=== PATIENT | female | born 1990 | race Caucasian/White ===

== ENCOUNTER 2018-01-13 09:43 | Observation (INO) ==
[2018-01-13 12:13] LABS: Bilirubin,Urine Negative (Negative); Blood,Urine Negative (Negative); Clarity,Urine Clear (Clear); Color,Urine Yellow (Yellow); Glucose,Urine (UA) Normal (Normal); Ketones,Urine Negative (Negative); Leukocyte Esterase,Urine Negative (Negative); Nitrite,Urine Negative (Negative); PH,Urine 6.5 pH Units (5.0-8.0); Protein,Urine Negative (Neg-Trace); Urobilinogen,Urine Normal (Normal)
--- NOTE | 2018-01-13 12:38 | OB/GYN Progress Note ---
Date of Encounter: 01/13/18 Time of Encounter: 12:34 - Assessment and Plan (1) 29 weeks gestation of Current Visit: Yes Status: Acute (2) Diarrhea Current Visit: Yes Status: Acute Pt denies any diarrhea since early this am. She is tolerating liquids well. Qualifiers: Diarrhea type: unspecified type Qualified Code(s): R19.7 - Diarrhea, unspecified (3) Back pain complicating in third trimester Current Visit: Yes Status: Acute No contractions. Pt reports pain is now gone. Discharge home with precautions. Subjective - Subjective Interval history: 27 year-old presenting at 29w5d with c/o diarrhea and lower back pain that started around 3 am and spontaneously resolved upon arrival to triage. Pt reports feeling well with no complaints now. She reports the pain was in her lower middle back. She admits to intercourse last evening. The diarrhea has been intermttent for the last 5 days. Good FM. No leaking, bleeding, or contractions. Antepartum ROS: movement normal, no loss of fluid, no vaginal bleeding, no contractions Objective - Vital Signs Vital Signs: Intake and Output 01/12/18 01/13/18 01/13/18 23:59 07:59 15:59 Other: Weight 84.2 kg Patient Weight 01/13/18 23:59 Weight 84.2 kg - Exam FHR: category 1 FHR comments: FHT reassuring for GA Abdomen: Present: soft, gravid. Absent: tenderness Uterus: Absent: tenderness Comments: no contractions on toco
[2018-01-13 12:45] LABS: Amphetamine Screen,Urine Negative ng/mL (Cutoff=1000); Barbiturate Screen,Urine Negative ng/mL (Cutoff=200); Benzodiazepines Screen,Urine Negative ng/mL (Cutoff=200); Cannabinoid Screen,Urine Negative ng/mL (Cutoff = 50); Cocaine Screen,Urine Negative ng/mL (Cutoff= 300); Opiate Screen,Urine Negative ng/mL (Cutoff=300); Phencyclidine Screen,Urine Negative ng/mL (Cutoff=25)
== END 2018-01-13 12:37 | disposition home or self-care (01) ==
LOC: 1NENULAB
PROVIDERS: ADMIT Registered Nurse; ATTEND Registered Nurse

== ENCOUNTER 2018-02-15 13:28 | Observation (INO) ==
--- NOTE | 2018-02-15 14:48 | OB/GYN Progress Note ---
Date of Encounter: 02/15/18 Time of Encounter: 14:46 - Assessment and Plan (1) 34 weeks gestation of Current Visit: Yes Status: Acute Continue care as scheduled labor precautions given Discharge home (2) NST (non-stress test) reactive on surveillance Current Visit: Yes Status: Acute Subjective - Subjective Principal diagnosis: nausea and vomiting during Interval history: Jameson is a 28-year-old female who is 34 weeks 3 days gestation who presents with a three-day history of nausea with vomiting. She reports that she called her blood sugar logs into the office and was advised to go to the emergency room for rule out DKA. Her A1c was 4.9% in the ER and her blood sugar was 96. She reports they gave her 1 L of fluids that she now feels better. She presents to us for monitoring via NST. She endorses good movement and denies contractions, leakage of fluid, vaginal bleeding. Antepartum ROS: new complaints, movement normal, no loss of fluid, no vaginal bleeding, no contractions Objective - Vital Signs Vital Signs: Intake and Output 02/14/18 02/15/18 02/15/18 23:59 07:59 15:59 Other: Weight 85.5 kg Patient Weight 02/15/18 23:59 Weight 85.5 kg - Exam FHR: category 1 FHR comments: Baseline 140 Moderate variability Accelerations present No decelerations heart rate category I No toco activity Auscultation: bilateral: normal Abdomen: Present: normal appearance, soft, gravid Uterus: Present: normal, firm
== END 2018-02-15 14:30 | disposition home or self-care (01) ==
LOC: 1NENULAB
PROVIDERS: ADMIT Obstetrics & Gynecology; ATTEND Obstetrics & Gynecology

== ENCOUNTER 2018-03-20 06:00 | Inpatient (IN) ==
[2018-03-20] MEDS ORDERED: Naloxone 0.4 MG/ML INJ IVP PRN ×2 (06:31→12:53)
[2018-03-20] MEDS ORDERED: Ondansetron 4 MG/2 ML VIAL IVP PRN ×2 (06:31→12:53)
[2018-03-20] MEDS ORDERED: Famotidine 20 MG/2 ML VIAL IVP PRN (06:31)
[2018-03-20] MEDS ORDERED: *HR* Nalbuphine 10 MG/ML AMPUL IVP PRN (06:31)
[2018-03-20] MEDS ORDERED: Metoclopramide 10 MG/2 ML VIAL IVP PRN (06:31)
[2018-03-20] MEDS ORDERED: Ringers Solution, Lactated 1,000 ML IVC SCH (06:45)
[2018-03-20 06:53] LABS: Basophils % 0.3 %; Eosinophils # 0.1 K/mcL (0.0-0.6); Eosinophils % 0.9 %; Hematocrit 34.8 % (35.3-44.9); Hemoglobin 12.1 g/dL (11.5-15.4); Immature Granulocytes % 0.3 % (0-4); Lymphocytes # 1.7 K/mcL (0.6-4.6); Mean Corpuscular HGB Conc 34.8 g/dL (31.6-35.5); Mean Corpuscular Hemoglobin 32.5 pg (28.0-33.3); Mean Corpuscular Volume 93.5 fL (83.0-100.0); Mean Platelet Volume 10.8 fL (9.4-12.4); Monocytes # 0.6 K/mcL (0.0-1.3); Monocytes % 6.1 %; Neutrophils # 6.9 K/mcL (1.6-8.9); Platelet Count 237 K/mcL (140-400); Red Blood Count 3.72 M/mcL (3.82-4.97); Segmented Neutrophils % 74.4 %
[2018-03-20] MEDS ORDERED: Penicillin G Potassium 5,000,000 UNIT in 0.9 % Sodium Chloride Mini Bag 100 ML IVPB ONE (06:57)
[2018-03-20 08:07] LABS: Amphetamine Screen,Urine Negative ng/mL (Cutoff=1000); Barbiturate Screen,Urine Negative ng/mL (Cutoff=200); Benzodiazepines Screen,Urine Negative ng/mL (Cutoff=200); Cannabinoid Screen,Urine Negative ng/mL (Cutoff = 50); Cocaine Screen,Urine Negative ng/mL (Cutoff= 300); Opiate Screen,Urine Negative ng/mL (Cutoff=300); Phencyclidine Screen,Urine Negative ng/mL (Cutoff=25)
[2018-03-20] MEDS ORDERED: miSOPROStol 25 MCG TABLET PO PRN (08:38)
[2018-03-20] MEDS: Penicillin G Potassium 2,500,000 UNIT in 0.9 % Sodium Chloride 100 ML IVPB SCH ×2 (12:37→16:53)
--- NOTE | 2018-03-20 12:47 | Anesthesia Evaluation PreOp ---
Date of Encounter: 03/20/18 Time of Encounter: 12:15 - Past History Planned Operation: CLARE Cardiac History: Other (hx of sinus tachycardia) Pulmonary History: Denies Any Significant HX BODY HANGER History: Other (hx sciatica with mild numbness in hips and thighs. Occasional visits to chiropractor for relief. Pt states xray history showing hip misalignment, with no lumbar spine concerns. Will proceed with epidural.) Other Medical History: GERD, Other (Pt history of severe depression and suicidal ideation and auditory hallucinations with an admit to psychiatric care 2 years ago after a plan developed to stab herself with a knife. Hx of pt on prozac and zoloft. Gestational diabetes with insulin control.) Anesthesia History: No Prior Anesthetic Complications, Past Anesthesia ( Tonsillectomy) : Yes Alcohol Use: none Drug use: none Medications and Allergies [id number]/Iron Fumarate/FA/Dss [ 19 Tablet] 1 tab PO DAILY 01/13/18 [ History] 3 Allergy/AdvReac Type Severity Reaction Status Date / Time No Known Allergies Allergy Verified 02/15/18 10:17 - Meds/Allergy Pre-op Review Medications Reviewed: Yes Allergies Reviewed: Yes Beta Blockers on Current Med List: No Anesthesia Results - Labs 03/20/18 06:30 03/20/18 06:30 Anesthesia Exam BP 112/76 P 83 T 98.1 R 16 Height: 5'3" Weight: 86.5kg NPO (# of Hours): currently on clears Pain Scale: 4 Pain Scale Used: Numeric (1 - 10) - HEENT Pupil (Motor): Pupils equal Mallampati: II Teeth: Normal Oral Opening: Greater than 3 - BODY HANGER LOC: Oriented BODY HANGER Motor: Normal RUE, Normal LUE, Normal RLE, Normal LLE, Normal Face BODY HANGER Sensory: Normal: RUE, LUE, RLE, LLE, Face - Cardiac Rhythm: Regular Murmur: None JVD: No Carotid Bruit: No - Pulmonary Breath Sounds: bilateral Clear Respiratory Effort: Symmetrical Anesthesia Assess/Plan ASA Score: 3 Modified Andrés Scale for Level of Consciousness: Cooperative, oriented, and tranquil Anesthetic Plan: Regional Autologous Blood: Yes Monitoring Plan: Standard Monitors Recovery Plan: Other
[2018-03-20] MEDS ORDERED: *HR* FentaNYL (PF) 100 MCG/2 ML VIAL EP ONE (12:53)
[2018-03-20] MEDS ORDERED: EPHEDrine 50 MG/ML VIAL IVP PRN (12:53)
[2018-03-20] MEDS ORDERED: *HR* Ropivacaine/PF 0.2% 20 ML VIAL EP ONE (12:53)
[2018-03-20] MEDS ORDERED: Bupivacaine-MPF 0.25% 10 ML VIAL EP ONE (12:53)
[2018-03-20] MEDS ORDERED: Epidural Premix (fent/bupiv) 110 ML EP SCH (13:00)
--- NOTE | 2018-03-20 13:39 | OB/GYN History & Physical ---
Date of Encounter: 03/20/18 Time of Encounter: 13:37 Assessment and Plan (1) 40 weeks gestation of Current visit: Yes Status: Acute 22 sexual 1 para 0 female at 39 weeks and 1 day gestation presents to labor and delivery for induction of laborbeen complicated only by gestational diabetes can control after discussing patient's options will admit to labor and delivery begin Cytotec cervix is favorable cervix on transvaginal delivered with patient (2) Gestational diabetes Current visit: Yes Status: Acute Qualifiers: Gestational diabetes mellitus control: diet-controlled Trimester: third trimester Qualified Code(s): O24.410 - Gestational diabetes mellitus in , diet controlled History of Present Illness Chief complaint: Here for induction. HPI: Ms. Benjamin is a 28 year old female 1 para 0 female presents to labor and delivery for induction of labor. On arrival she reports regular contractions and bleeding which followed and concave by gestational diabetes with good control. Past Med Surg Social Fam HX - Past Medical History Source: patient, old records reviewed Medical history: diabetes Additional medical history: Gestational Diabetes Psychiatric history: anxiety, depression - Past Surgical History Surgical History: no surgical history Additional surgical history: T&A - Social History Smoking Status: Former smoker Smokeless Tobacco Status: No Alcohol use: none Drug use: none - Family History Father Adopted: No Family Member Ethnicity: Non- Living Status: Still Living Hx Family Cardiac Disorders: No Hx Family Respiratory Disorders: No Hx Family Cancer: No Hx Family GI Disorders: No Hx Family Genitourinary Disorders: No Hx Family Endocrine Disorder: Yes (gest. diabetic) Hx Family Musculoskeletal Disorders: No Hx Family Neuromuscular Disorders: No Hx Family Neurologic Disorders: No Hx Family HEENT Disorders: No Hx Family Autoimmune Disorders: No Hx Family Reproductive Disorders: No Hx Family Psychosocial Disorders: No Hx Family Medical Disorders: No Obstetrical History - Pregnancies : 1 Medications and Allergies [id number]/Iron Fumarate/FA/Dss [ 19 Tablet] 1 tab PO DAILY 01/13/18 [ History] 3 Allergy/AdvReac Type Severity Reaction Status Date / Time No Known Allergies Allergy Verified 02/15/18 10:17 Exam - Constitutional Constitutional: well developed, well nourished, no acute distress - Neck Neck exam: full ROM - Lungs Respiratory exam: CTAB - Cardiovascular Cardiovascular exam: RRR - Abdomen Abdomen: Present: gravid - Extremities Extremities exam: full ROM Deep Tendon Reflex Grade: 2+ Normal - Cervix Dilation: 3 Effacement: 70 Station: -2 - Uterus Uterus exam: Present: enlarged Results Result Diagrams: 03/20/18 06:30 03/20/18 06:30 Abnormal lab results RBC 3.72 M/mcL (3.82-4.97) L 03/20/18 06:30 Hct 34.8 % (35.3-44.9) L 03/20/18 06:30 Glucose 175 mg/dL (70-105) H 03/20/18 06:30 All other labs normal.
[2018-03-20] MEDS ORDERED: Oxytocin 20 units/ LR 1000 mL 20 UNIT/1,000 ML BAG IVC SCH (16:30)
[2018-03-20] MEDS ORDERED: Oxytocin 20 units/ LR 1000 mL 20 UNIT/1,000 ML BAG IVC ONE (16:45)
[2018-03-20] MEDS ORDERED: Lidocaine 1% 20 ML MDV ONE (17:14)
[2018-03-20] MEDS ORDERED: Bupivacaine-MPF 0.25% 10 ML VIAL ONE (17:14)
[2018-03-20] MEDS ORDERED: *HR* FentaNYL (PF) 100 MCG/2 ML VIAL ONE (17:14)
--- NOTE | 2018-03-20 17:53 | Anesthesia Procedures ---
Date of Encounter: 03/20/18 Time of Encounter: 17:18 Procedures: Anesthesia - Epidural/Spinal Patient ID/Chart reviewed: Yes Patient examined: Yes OB Eval: Gestational age: 39 OB Eval: : 1 OB Eval: Hx Para: 0 OB Eval: Contractions: Non-stressed pattern Consent Obtained: Yes Supplemental Oxygen: None/Room Air Supplemental Oxygen Rate (L/min): 2 Site Prep: Aseptic Technique, Sterile prep and drape, Povidone-Iodine 1% Patient position: upright Local Anesthetic: Lidocaine 1% Amount of Local Anesthetic used: 3 Touhy Needle Gauge: 18 Touhy Needle Depth (cm): 6 Catheter Depth at Skin (cm): 15 Test Dose (1.5% Lido + Epi): Volume given (mls): 3 Test Dose Result: Negative Loading Dose: 0.25% Marcaine (mls): 7 Loading Dose: Fentanyl (mcg): 100 Loading Dose Administered: Thru Catheter Infusion Med: 0.125% Bupivacaine w/ 2 mcg/ml Fentanyl Infusion Rate (mls/hr): [address]: Tegaderm, Tape Interspace Used: L3-L4 Loss of Resistance (SAMIA): Yes Blood: No CSF: No Paresthesia: No Procedure: CLARE placed 1st pass in upright position without any immediate noted complications. VSS and FHT stable throughout Vitals + FHT's: 1718 BP 118/84 P 82 R 18 1743 BP 103/62 P 75 R 16 FHT 120s
--- NOTE | 2018-03-20 22:50 | OB Labor Progress Note ---
Date of Encounter: 03/20/18 Time of Encounter: 22:50 Labor Progress Note - Subjective Subjective: Is comfortable with epidural. - Cervix Cervix: 8/100/-1 - Heart Tones Heart Tones: RNST - Entiat Entiat: UC's q 2 min - Plan Plan: Expect .
--- NOTE | 2018-03-21 02:58 | OB/GYN Procedure Note ---
Delivery - Delivery Date: 03/21/18 Provider: Bryan Bowser Delivery induction: misoprostol Delivery monitor: external FHT, internal uterine Anesthesia: epidural Quantitated Blood Loss: 350 - (s) Infant A Delivery Date: 03/21/18 Delivery Time: Presentation: vertex Position: DENICE Route of delivery: Gender: Female Viability: Viable Pounds: 7 Ounces: 9 Shoulder Dystocia: not encountered Specimens collected: cord blood Placenta: spontaneous Cord: nuchal cord (x 2), 3 umbilical vessels - Repair Episiotomy: none Laceration Description: Perineal - 1st Degree, Labial (bilateral) - Complications Delivery complications: none - Disposition Mom disposition: stable in LDR disposition: stable in LDR - Comments Comments: Patient is status post normal spontaneous vaginal delivery of liveborn female. There was second-degree laceration and bilateral labial lacerations that were recovered with 3-0 Vicryl under epidural anesthesia. We had spontaneous delivery of a normal placenta with a three-vessel cord. Mother and infant recovered in labor and delivery
[2018-03-21] MEDS ORDERED: Measles/Mumps/Rubella Vacc 0.5 ML VIAL SQ PRN (04:36)
[2018-03-21] MEDS ORDERED: Rho Immune Globulin 1,500 UNIT SYRINGE IM PRN (04:36)
[2018-03-21] MEDS ORDERED: Oxytocin 20 units/ LR 1000 mL 20 UNIT/1,000 ML BAG IVC SCH (04:36)
[2018-03-21] MEDS: Acetaminophen 325 MG TABLET PO PRN ×2 (06:27→22:10)
[2018-03-21] MEDS: Ibuprofen 600 MG TABLET PO PRN ×2 (08:47→21:26)
[2018-03-21] MEDS: Prenatal Vit/FA 1 EACH TABLET PO SCH (08:49)
[2018-03-22 05:52] LABS: Basophils % 0.3 %; Eosinophils # 0.1 K/mcL (0.0-0.6); Eosinophils % 0.8 %; Hematocrit 28.4 % (35.3-44.9); Immature Granulocytes % 0.7 % (0-4); Mean Corpuscular HGB Conc 34.2 g/dL (31.6-35.5); Mean Corpuscular Volume 93.7 fL (83.0-100.0); Mean Platelet Volume 11.2 fL (9.4-12.4); Monocytes # 0.7 K/mcL (0.0-1.3); Monocytes % 7.2 %; Neutrophils # 6.8 K/mcL (1.6-8.9); Platelet Count 176 K/mcL (140-400); Red Blood Count 3.03 M/mcL (3.82-4.97); Red Cell Distribution Width 14.1 % (11.5-14.5)
[2018-03-22 06:53] LABS: Hemoglobin 9.7 g/dL (11.5-15.4)
[2018-03-22] MEDS: Prenatal Vit/FA 1 EACH TABLET PO SCH (07:42)
[2018-03-22] MEDS: Ibuprofen 600 MG TABLET PO PRN (07:42)
[2018-03-22 08:20] VITALS: BP 107/67
--- NOTE | 2018-03-22 15:08 | Discharge Summary ---
Date of Encounter: 03/22/18 Time of Encounter: 15:02 - Discharge Diagnosis (1) Vaginal delivery Priority: Primary Status: Acute Comments: Pain well controlled with by mouth pain meds Tolerating regular diet Ambulating independently Voiding independently Passing flatus, no BM yet Lochia light Vital signs stable Discharge home (2) anemia Priority: Secondary Status: Acute Comments: Continue iron supplementation twice daily for 2 months (3) Breast feeding status of mother Priority: Secondary Status: Acute (4) History of suicidal ideation Priority: Secondary Status: Acute Comments: Start Zoloft 25 mg daily 1 week, then increase to 50 mg daily - Discharge Medications Prescriptions: Ibuprofen [Motrin] 600 mg PO Q6HR PRN #30 tablet PRN Reason: Mild To Moderate Pain Breast Pump [BREAST PUMP] 1 each .ROUTE AD #1 each Docusate [Colace] 100 mg PO BID #60 capsule Ferrous Sulfate 325 mg PO BID #60 tablet Sertraline [Zoloft] 50 mg PO DAILY #30 tablet Home Medications: [id number]/Iron Fumarate/FA/Dss [ 19 Tablet] 1 tab PO DAILY 01/13/18 [ History] Acetaminophen [Tylenol] 650 mg PO Q6HR PRN tablet 03/22/18 [Rx] Breast Pump [BREAST PUMP] 1 each .ROUTE AD #1 each 03/22/18 [Rx] Docusate [Colace] 100 mg PO BID #60 capsule 03/22/18 [Rx] Ferrous Sulfate 325 mg PO BID #60 tablet 03/22/18 [Rx] Ibuprofen [Motrin] 600 mg PO Q6HR PRN #30 tablet 03/22/18 [Rx] Sertraline [Zoloft] 50 mg PO DAILY #30 tablet 03/22/18 [Rx] Allergies/Adverse Reactions: 3 Allergy/AdvReac Type Severity Reaction Status Date / Time No Known Allergies Allergy Verified 02/15/18 10:17 Data Procedures and tests throughout hospitalization: Laboratory Tests 03/20/18 03/20/18 03/20/18 06:30 06:30 06:30 WBC 9.3 RBC 3.72 L Hgb 12.1 Hct 34.8 L MCV 93.5 MCH 32.5 MCHC 34.8 RDW 14.0 Plt Count 237 MPV 10.8 Immature Gran % 0.3 Seg Neutrophils % 74.4 Lymphocytes % 18.0 Monocytes % 6.1 Eosinophils % 0.9 Basophils % 0.3 Neutrophils # 6.9 Lymphocytes # 1.7 Monocytes # 0.6 Eosinophils # 0.1 Basophils # 0.0 Glucose 175 H Urine Opiates Screen Negative Ur Barbiturates Screen Negative Ur Phencyclidine Scrn Negative Ur Amphetamines Screen Negative U Benzodiazepines Scrn Negative Urine Cocaine Screen Negative U Marijuana (THC) Screen Negative Ur Drug Screen Interp See Below Screen Baby's Blood Type Mother's Blood Type Rhogam Indicated Rhogam Req for Mother 03/21/18 03/22/18 04:05 05:37 WBC 9.7 RBC 3.03 L Hgb 9.7 L D Hct 28.4 L MCV 93.7 MCH 32.0 MCHC 34.2 RDW 14.1 Plt Count 176 MPV 11.2 Immature Gran % 0.7 Seg Neutrophils % 70.0 Lymphocytes % 21.0 Monocytes % 7.2 Eosinophils % 0.8 Basophils % 0.3 Neutrophils # 6.8 Lymphocytes # 2.0 Monocytes # 0.7 Eosinophils # 0.1 Basophils # 0.0 Glucose Urine Opiates Screen Ur Barbiturates Screen Ur Phencyclidine Scrn Ur Amphetamines Screen U Benzodiazepines Scrn Urine Cocaine Screen U Marijuana (THC) Screen Ur Drug Screen Interp Screen NEGATIVE Baby's Blood Type A RH POSITIVE Mother's Blood Type A RH NEGATIVE Rhogam Indicated YES Rhogam Req for Mother 1 Labs on day of discharge: Labs from last 24 hours 03/22/18 05:37 WBC 9.7 RBC 3.03 L Hgb 9.7 L D Hct 28.4 L MCV 93.7 MCH 32.0 MCHC 34.2 RDW 14.1 Plt Count 176 MPV 11.2 Immature Gran % 0.7 Seg Neutrophils % 70.0 Lymphocytes % 21.0 Monocytes % 7.2 Eosinophils % 0.8 Basophils % 0.3 Neutrophils # 6.8 Lymphocytes # 2.0 Monocytes # 0.7 Eosinophils # 0.1 Basophils # 0.0 Date of admission: 03/20/18 06:14 Primary care physician: Riki Ayala MD Consults: 03/21/18 04:36 Consult to Planting Machine Operator [CONS] Routine Comment: Vaginal delivery, consult needed Discharging clinician: Eula Millan Anticipated date of discharge: 03/22/18 - Patient Status Disposition: Home, Self-Care Condition: Good Functional capacity at discharge: independent ambulation Overall status at discharge: patient is progressing back to baseline - Discharge Instructions Follow Up With: Riki Ayala MD [Primary Care Provider] - Bryan Bowser MD [Partnered Physician] - - Diet and Activity Activity: increase activity as tolerated Diet: regular diet Hospital Course Procedures: Reason for admission: induction of labor, IUP at term Delivery: Episiotomy: none Laceration: 1st degree Other procedures: none complications: none Discharge diagnosis: IUP at term delivered [employer] baby: female Time Attestation: Total time spent providing and/or coordinating discharge services: Time Spent: Less than 30 minutes Exam - Constitutional Vitals: Temp Pulse Resp BP Pulse Ox 97.6 F 76 18 107/67 97 03/22/18 08:20 03/22/18 08:20 03/22/18 08:20 03/22/18 08:20 03/22/18 08:20 General appearance IM: A&O X 3 - Respiratory Respiratory exam: Present: CTAB - Cardiovascular Cardiovascular exam IM: Present: RRR, +S1, +S2 - GI/Abdominal GI/Abdominal exam IM: normal bowel sounds, pulsatile mass, no peritoneal signs - Rectal Rectal exam: deferred - Uterine Tone: Firm Uterus Position: At Umbilicus, Midline - Extremities Exam Extremities exam IM: Present: normal capillary refill, normal inspection, radial pulses palpable and symmetrical - Neurological Exam Neurological exam: alert, CN II-XII intact, normal gait, oriented X3, reflexes normal, no focal deficits, strengths equal and symetr throughout - Psychiatric Additional comments: Patient reports history of suicide attempt 2 years ago. Is agreeable to begin Zoloft in order to decrease likelihood of depression. Signs and symptoms of depression discussed extensively and patient verbalizes understanding of when to seek help.
== END 2018-03-22 19:34 | disposition home or self-care (01) | DRG 775 ==
LOC: 1NENULAB 06:14 → 1NENUOBS 03-21 04:22
PROVIDERS: ADMIT Obstetrics & Gynecology; ATTEND Obstetrics & Gynecology

== ENCOUNTER 2021-11-25 14:15 | Inpatient (IN) ==
[2021-11-25 14:49] LABS: Basophils # 0.1 K/mcL (0.0-0.2); Basophils % 0.8 %; Eosinophils # 0.1 K/mcL (0.0-0.6); Eosinophils % 0.8 %; Hemoglobin 15.1 g/dL (11.5-15.4); Immature Granulocytes % 0.5 % (0-4); Lymphocytes # 1.6 K/mcL (0.6-4.6); Lymphocytes % 18.9 %; Mean Corpuscular HGB Conc 35.1 g/dL (31.6-35.5); Mean Corpuscular Hemoglobin 31.1 pg (28.0-33.3); Mean Corpuscular Volume 88.5 fL (83.0-100.0); Mean Platelet Volume 9.7 fL (9.4-12.4); Monocytes # 0.4 K/mcL (0.0-1.3); Monocytes % 5.2 %; Neutrophils # 6.3 K/mcL (1.6-8.9); Platelet Count 326 K/mcL (140-400); Red Blood Count 4.86 M/mcL (3.82-4.97); Red Cell Distribution Width 12.5 % (11.5-14.5); Segmented Neutrophils % 73.8 %; White Blood Count 8.5 K/mcL (4.3-11.1)
[2021-11-25 14:57] LABS: Amorphous Sediment,Urine Few per hpf (None-Few); Bacteria,Urine Few per hpf (None-Few); Bilirubin,Urine Negative (Negative); Blood,Urine Negative (Negative); Clarity,Urine Turbid (Clear); Color,Urine Yellow (Yellow); Glucose,Urine (UA) Normal (Normal); Ketones,Urine Trace mg/dL (Negative); Leukocyte Esterase,Urine Negative (Negative); Mucus,Urine Many per lpf (None-Few); Nitrite,Urine Negative (Negative); Protein,Urine 50 mg/dL (Neg-Trace); RBC,Urine 0-3 per hpf (0-3); Specific Gravity,Urine > 1.030 (1.010-1.025); Squamous Epithelial Cell,Urine Many per hpf (None-Few); Urobilinogen,Urine Normal (Normal)
[2021-11-25 15:04] LABS: Amphetamine Screen,Urine Negative ng/mL (Cutoff=1000); Barbiturate Screen,Urine Negative ng/mL (Cutoff=200); Benzodiazepines Screen,Urine Negative ng/mL (Cutoff=200); Cannabinoid Screen,Urine Positive ng/mL (Cutoff = 50); Cocaine Screen,Urine Negative ng/mL (Cutoff= 300); Opiate Screen,Urine Positive ng/mL (Cutoff=300); Phencyclidine Screen,Urine Negative ng/mL (Cutoff=25)
[2021-11-25 15:10] LABS: Acetaminophen < 10 mcg/mL (10-20); BUN/Creatinine Ratio 14 (6-26); Blood Urea Nitrogen 9 mg/dL (6-20); Calcium 9.7 mg/dL (8.6-10.3); Carbon Dioxide 26 mEq/L (23-29); Chloride 106 mEq/L (98-107); Chol/HDL Ratio 3.5 (0-4.9); Cholesterol 149 mg/dL (< 200); Ethanol < 10 mg/dL (Less than 10); Glucose 158 mg/dL (70-105); HDL Cholesterol 42 mg/dL (40-59); LDL Cholesterol,Calculated 64 mg/dL (< 100); Osmolality,Calculated 292 (280-300); Potassium 3.8 mEq/L (3.5-5.1); Salicylate < 2.5 mg/dL (15.0-30.0); Sodium 140 mEq/L (136-145); Triglycerides 216 mg/dL (< 150); eGFR For African Americans > 60 (> 60); eGFR For Non-African Americans > 60 (> 60)
[2021-11-25] MEDS ORDERED: *HR* LORazepam 1 MG TABLET PO ONE (15:56)
[2021-11-25] MEDS ORDERED: Haloperidol Lactate 5 MG/ML VIAL IM PRN (18:47)
[2021-11-25] MEDS ORDERED: haloperidoL 5 MG TABLET PO PRN (18:47)
[2021-11-25] MEDS ORDERED: *HR* LORazepam 2 MG/ML VIAL IM PRN (18:47)
[2021-11-25] MEDS ORDERED: *HR* LORazepam 1 MG TABLET PO PRN (18:47)
[2021-11-25 19:01] LABS: Influenza A PCR Negative (Negative); Influenza B PCR Negative (Negative); Resp. Syncytial Virus PCR Negative (Negative)
[2021-11-25 19:05] LABS: SARS-CoV-2 by PCR (In House) Negative (Negative)
[2021-11-25] MEDS: QUEtiapine Fumarate 25 MG TABLET PO PRN (21:48)
[2021-11-25] MEDS: hydrOXYzine pamoate 25 MG CAPSULE PO PRN (21:48)
[2021-11-26] MEDS ORDERED: MOM Conc 10 ML UD.LIQ PO PRN (08:03)
[2021-11-26] MEDS ORDERED: Mag Hydrox/Al Hydrox/Simeth 30 ML UDC PO PRN (08:03)
[2021-11-26] MEDS: Acetaminophen 325 MG TABLET PO PRN (20:41)
[2021-11-26] MEDS: hydrOXYzine pamoate 25 MG CAPSULE PO PRN (20:42)
[2021-11-26] MEDS: QUEtiapine Fumarate 25 MG TABLET PO PRN (20:42)
[2021-11-27] MEDS: QUEtiapine Fumarate 25 MG TABLET PO PRN (20:47)
[2021-11-27] MEDS: hydrOXYzine pamoate 25 MG CAPSULE PO PRN (20:48)
[2021-11-27] MEDS: Acetaminophen 325 MG TABLET PO PRN (20:49)
[2021-11-28] MEDS ORDERED: Paliperidone Palmitate 234 MG/1.5 ML SYRINGE IM SCH (09:00)
[2021-11-28] MEDS: QUEtiapine Fumarate 25 MG TABLET PO PRN (20:22)
[2021-11-28] MEDS: Acetaminophen 325 MG TABLET PO PRN (20:22)
[2021-11-28] MEDS: hydrOXYzine pamoate 25 MG CAPSULE PO PRN (20:23)
[2021-11-29] MEDS: QUEtiapine Fumarate 25 MG TABLET PO PRN ×3 (00:35→23:04)
[2021-11-29] MEDS: hydrOXYzine pamoate 25 MG CAPSULE PO PRN (21:01)
[2021-11-29] MEDS: Acetaminophen 325 MG TABLET PO PRN (21:02)
[2021-11-29] MEDS ORDERED: Nicotine 2 MG GUM BC PRN (21:05)
[2021-11-30] MEDS: Nicotine 2 MG GUM BC PRN ×2 (18:28→21:33)
[2021-11-30] MEDS: Acetaminophen 325 MG TABLET PO PRN (19:48)
[2021-11-30] MEDS: QUEtiapine Fumarate 25 MG TABLET PO PRN (20:34)
[2021-11-30] MEDS: hydrOXYzine pamoate 25 MG CAPSULE PO PRN (20:38)
[2021-12-01] MEDS: Nicotine 2 MG GUM BC PRN ×2 (14:28→18:47)
[2021-12-01] MEDS: QUEtiapine Fumarate 25 MG TABLET PO PRN (21:08)
[2021-12-01] MEDS: hydrOXYzine pamoate 25 MG CAPSULE PO PRN (21:08)
[2021-12-02] MEDS ORDERED: Paliperidone Palmitate 156 MG/ML SYRINGE IM ONE (12:00)
[2021-12-02] MEDS: Nicotine 2 MG GUM BC PRN (14:18)
[2021-12-02] MEDS: Acetaminophen 325 MG TABLET PO PRN (15:43)
[2021-12-02] MEDS: QUEtiapine Fumarate 25 MG TABLET PO PRN ×2 (20:26→21:59)
[2021-12-02] MEDS: hydrOXYzine pamoate 25 MG CAPSULE PO PRN (20:27)
[2021-12-03] MEDS: QUEtiapine Fumarate 25 MG TABLET PO PRN ×2 (20:56→22:49)
[2021-12-03] MEDS: hydrOXYzine pamoate 25 MG CAPSULE PO PRN (20:56)
[2021-12-03] MEDS: Acetaminophen 325 MG TABLET PO PRN (22:49)
[2021-12-04] MEDS: Acetaminophen 325 MG TABLET PO PRN (14:29)
[2021-12-04] MEDS: hydrOXYzine pamoate 25 MG CAPSULE PO PRN (20:11)
[2021-12-04] MEDS: QUEtiapine Fumarate 25 MG TABLET PO PRN ×2 (20:11→22:26)
[2021-12-05] MEDS: QUEtiapine Fumarate 25 MG TABLET PO PRN (20:21)
[2021-12-05] MEDS: hydrOXYzine pamoate 25 MG CAPSULE PO PRN (20:21)
[2021-12-06] MEDS: Acetaminophen 325 MG TABLET PO PRN (14:08)
[2021-12-06] MEDS: hydrOXYzine pamoate 25 MG CAPSULE PO PRN (19:45)
[2021-12-06] MEDS: QUEtiapine Fumarate 25 MG TABLET PO PRN ×2 (19:46→22:29)
[2021-12-07] MEDS: Acetaminophen 325 MG TABLET PO PRN (14:50)
[2021-12-07] MEDS: QUEtiapine Fumarate 25 MG TABLET PO PRN (20:08)
[2021-12-07] MEDS: hydrOXYzine pamoate 25 MG CAPSULE PO PRN (20:08)
[2021-12-07] MEDS: Nicotine 2 MG GUM BC PRN (20:10)
[2021-12-08] MEDS: hydrOXYzine pamoate 25 MG CAPSULE PO PRN ×2 (15:57→20:45)
[2021-12-08] MEDS: Nicotine 2 MG GUM BC PRN (20:49)
[2021-12-08] MEDS: Acetaminophen 325 MG TABLET PO PRN (20:49)
[2021-12-08] MEDS ORDERED: ARIPiprazole 5 MG TABLET PO SCH (21:00)
[2021-12-08] MEDS: QUEtiapine Fumarate 25 MG TABLET PO PRN (23:36)
[2021-12-09 09:06] VITALS: BP 122/80; PULSE 90; TEMP 97.4; O2SAT 97
== END 2021-12-09 14:02 | disposition home or self-care (01) | DRG 751 ==
LOC: EMEROOARM 14:15 → 1ANU 19:27
PROVIDERS: ADMIT Psychiatry & Neurology Psychiatry; ATTEND Psychiatry & Neurology Psychiatry